=== PATIENT | male | born 1990 ===

== ENCOUNTER 2021-04-16 22:45 | Emergency (ER) | payer SELFPAY ==
--- NOTE | 2021-04-16 23:36 | Emergency Department Report ---
ED General Adult HPI - General Chief complaint: Anxiety Stated complaint: NERVOUS, HANDS TINGLING, METH USE Time Seen by Provider: 04/16/21 23:30 Source: EMS Mode of arrival: Stretcher Limitations: No Limitations - History of Present Illness Initial comments: Chief complaint: Feeling anxious, tingling in hands, recently used methamphetamine HPI: This 30-year-old male with history of anxiety who presents with anxiety hyperventilation tingling in extremities. He has used methamphetamine pretty consistently for the last 2 months. Heavy use of the last several days. Last use this morning. He also drank alcohol today. He denies suicidal homicidal ideation. He denies depression. He recently started using methamphetamines socially. Data Storage Specialist provided verbal [place]e interpretation. When EMS arrived, patient's vital signs are stable with normal oxygen saturation with exception of hyperventilation. Patient feels better at this point. -: Gradual, This evening Severity scale (0 -10): 0 Consistency: now resolved Improves with: other (Calm setting, reassurance by EMS) Worsens with: none Associated Symptoms: other (Anxiety and feet tingling) Treatments Prior to Arrival: other (EMS transport) ED Review of Systems ROS: Stated complaint: NERVOUS, HANDS TINGLING, METH USE Other details as noted in HPI Comment: All other systems reviewed and negative Constitutional: denies: chills, fever, malaise Respiratory: denies: cough, shortness of breath Neurological: paresthesias Psychiatric: anxiety ED Past Medical Hx - Past Medical History Previous Medical History?: Yes Additional medical history: ANXIETY - Surgical History Past Surgical History?: No - Social History Smoking Status: Never Smoker Substance Use Type: Alcohol, Methamphetamines ED Physical Exam - General Limitations: No Limitations ED Course Vital Signs 04/16/21 22:57 Temperature 98.5 F Pulse Rate 94 H Respiratory 18 Rate Blood Pressure 132/92 [Left] O2 Sat by Pulse 98 Oximetry ED Medical Decision Making - Medical Decision Making Anxiety reaction, methamphetamine intoxication: No SI HI. No hallucinations. Patient is discharged home with reassurance. Critical care attestation.: If time is entered above; I have spent that time in minutes in the direct care of this critically ill patient, excluding procedure time. ED Disposition Clinical Impression: Anxiety reaction, Methamphetamine use Disposition: 01 HOME / SELF CARE / HOMELESS Is pt being admited?: No Does the pt Need Aspirin: No Condition: Stable Instructions: Methamphetamines Use Disorder Referrals: EVELIA WALLACE MD [Staff Physician] - 3-5 Days Print Language: RUSSIAN
[2021-04-16 23:58] VITALS: BP 136/91
== END 2021-04-16 23:53 | disposition home or self-care (01) ==
LOC: ED 22:45
DX: F41.1 Generalized anxiety disorder (principal); F15.90 Other stimulant use, unspecified, uncomplicated; Z72.89 Other problems related to lifestyle; Z79.899 Other long term (current) drug therapy
CPT/HCPCS: 99283